=== PATIENT | male | born 1950 | race Hispanic/Latino ===

== ENCOUNTER → 2021-08-30 | Outpatient (CLI) | payer OTHER ==
[~2021-08-30] VITALS: Ht 165.1 cm; Wt 78.5 kg
[~2021-08-30] MED LIST: ASPI-556 PO; ATEN25TA PO; ATOR10TA69 PO; REGADENOSON 0.4 MG/5 ML PF SYG IVP ONE; REGADENOSON 0.4 MG/5 ML PF SYG IVP SCH
== END | disposition home or self-care (01) ==
LOC: SHCH 08-24 08:34
PROVIDERS: ATTEND Internal Medicine Cardiovascular Disease
DX: I45.10 Unspecified right bundle-branch block (principal); I10 Essential (primary) hypertension; I25.2 Old myocardial infarction; E78.5 Hyperlipidemia, unspecified; F17.210 Nicotine dependence, cigarettes, uncomplicated; Z95.1 Presence of aortocoronary bypass graft
CPT/HCPCS: 78452; 96374; 93017; J2785; A9500 ×2

== ENCOUNTER → 2021-12-06 | Outpatient (CLI) | payer OTHER ==
[~2021-12-06] MED LIST changes: -REGADENOSON 0.4 MG/5 ML PF SYG IVP ONE; -REGADENOSON 0.4 MG/5 ML PF SYG IVP SCH
[2021-12-06 12:38] LABS: CREATININE 0.6 mg/dL (0.5-1.5); POTASSIUM 3.5 mmol/L (3.5-5.1)
== END | disposition home or self-care (01) ==
LOC: LAB 11:49
PROVIDERS: ATTEND Internal Medicine Cardiovascular Disease
DX: I25.10 Atherosclerotic heart disease of native coronary artery without angina pectoris (principal); R06.02 Shortness of breath
CPT/HCPCS: 36415; 80048; 83880

== ENCOUNTER → 2022-04-12 | Outpatient (CLI) | payer OTHER | END | disposition home or self-care (01) | LOC: SHCH 09:13 | PROVIDERS: ATTEND Internal Medicine Cardiovascular Disease | DX: I87.2 Venous insufficiency (chronic) (peripheral) (principal); I70.202 Unspecified atherosclerosis of native arteries of extremities, left leg | CPT/HCPCS: 93925; 93970 ==

== ENCOUNTER 2022-05-26 11:06 | Emergency (ER) | payer OTHER ==
[~2022-05-26] VITALS: Ht 167.6 cm; Wt 80.3 kg
[2022-05-26 12:06] LABS: BASOPHILS % (AUTO) 0.8 % (0.0-5.0); EOSINOPHILS % (AUTO) 2.3 % (0.0-8.0); HEMATOCRIT 40.2 % (42-54); LYMPHOCYTES % (AUTO) 18.4 % (21.0-51.0); MEAN CORPUSCULAR HEMOGLOBIN 30.9 pg (27.0-33.0); MEAN CORPUSCULAR HGB CONC 33.1 g/dL (32.0-36.0); MEAN CORPUSCULAR VOLUME 93.5 fL (79-99); MONOCYTES % (AUTO) 6.9 % (3.0-13.0); NEUTROPHILS % (AUTO) 68.1 % (40.0-77.0); PLATELET COUNT (AUTO) 239 K/uL (130-400); RED CELL DISTRIBUTION WIDTH 13.2 % (11.0-15.5); WHITE BLOOD COUNT (AUTO) 9.2 K/uL (4.8-10.8)
[2022-05-26 12:57] VITALS: BP 122/85
[2022-05-26] MEDS ORDERED: DICL20GE TP (12:58)
[2022-05-26 13:12] LABS: CREATININE 0.8 mg/dL (0.5-1.5); POTASSIUM 3.2 mmol/L (3.5-5.1)
[2022-05-26 13:16] LABS: ALBUMIN 3.5 g/dL (3.5-5.0); TOTAL PROTEIN, SERUM 7.2 g/dL (6.0-8.3)
== END 2022-05-26 13:20 | disposition home or self-care (01) ==
LOC: EDH 11:06
DX: G56.02 Carpal tunnel syndrome, left upper limb (principal); M19.012 Primary osteoarthritis, left shoulder; I10 Essential (primary) hypertension; Z79.82 Long term (current) use of aspirin; Z79.899 Other long term (current) drug therapy
CPT/HCPCS: 36415; 71045; 80053; 84484; 85025; 93005

== ENCOUNTER 2024-07-10 12:40 | Emergency (ER) | payer OTHER, MEDICARE ==
[~2024-07-10] VITALS: Ht 165.1 cm; Wt 77.1 kg
[~2024-07-10 12:40] MED LIST changes: +DICL20GE TP
[2024-07-10 12:59] LABS: BASOPHILS # (AUTO) 0.05 K/uL (0.00-0.20); BASOPHILS % (AUTO) 0.6 % (0.0-5.0); EOSINOPHILS # (AUTO) 0.32 K/uL (0.00-0.70); EOSINOPHILS % (AUTO) 3.8 % (0.0-8.0); HEMATOCRIT 38.9 % (42-54); IMMATURE GRANULOCYTE ABSOLUTE 0.26 K/uL (0-1); MEAN CORPUSCULAR HEMOGLOBIN 28.6 pg (27.0-33.0); MEAN CORPUSCULAR HGB CONC 31.9 g/dL (32.0-36.0); MEAN CORPUSCULAR VOLUME 89.8 fL (79-99); MONOCYTES # (AUTO) 0.6 K/uL (0.1-1.0); MONOCYTES % (AUTO) 6.4 % (3.0-13.0); NEUTROPHILS # (AUTO) 6.3 K/uL (1.8-7.7); NEUTROPHILS % (AUTO) 74.2 % (40.0-77.0); PLATELET COUNT (AUTO) 248 K/uL (130-400); RED BLOOD CELL COUNT(AUTO) 4.33 MIL/uL (4.50-6.20); RED CELL DISTRIBUTION WIDTH 14.3 % (11.0-15.5); WHITE BLOOD COUNT (AUTO) 8.5 K/uL (4.8-10.8)
[2024-07-10 13:05] LABS: CREATININE 0.8 mg/dL (0.5-1.3); POTASSIUM 3.3 mmol/L (3.5-5.1)
--- NOTE | 2024-07-10 13:05 | ERN ---
General Chief Complaint: Abdominal Pain Stated Complaint: ABDOMINAL PAIN Time Seen by MD: 12:45 Source: patient History of Present Illness Initial Comments PATIENT IS A 73-YEAR-OLD MALE COMING IN TO BE EVALUATED FOR EPIGASTRIC PAIN. PATIENT STATES THAT THE PAIN BEGAN EARLIER TODAY. HE STATES THAT THE PAIN IS LOCALIZED TO THE EPIGASTRIC REGION RADIATES TO THE SIDES. ALONG WITH THIS HE HAS BEEN FEELING NAUSEOUSNESS WITH THE SAME TIMEFRAME. Allergies: Coded Allergies: No Known Drug Allergies (Unverified Allergy, Unknown, 07/17/15) Home Meds Reported Medications Gabapentin (Gabapentin) 100 Mg Capsule, 300 MG PO TID, CAP 07/10/24 Tamsulosin HCl (Flomax) 0.4 Mg Cap.er.24h, 0.4 MG PO DAILY, CAPSULE.DR 07/10/24 Atorvastatin Calcium (Atorvastatin Calcium) 10 Mg Tablet, 20 MG PO HS, TAB 10/26/16 Aspirin (Aspir 81) 81 Mg Tablet.dr, 81 MG PO DAILY, TAB 10/24/16 Atenolol (Atenolol) 25 Mg Tablet, 25 MG PO AM, TAB 10/03/16 Discontinued Scripts Diclofenac Sodium (Voltaren Arthritis Pain) 20 Gm Gel..gram., 20 GM TP TID PRN for PAIN for 10 Days, #30 TUBE Prov:CLAUS OLIVIA MD 05/26/22 Past Medical History Past Medical History: Heart Disease, Hypertension Past Surgical History: CABG, Other Surgical History Other: HIP REPLACEMENT Social History Social History: Negative ROS Dictation CONSTITUTIONAL: NO CHILLS, NO FEVER, NO WEAKNESS, NO DIAPHORESIS, NO MALAISE. HEAD/FACE: NO SIGNS OF TRAUMA. EENT: NO EYE PAIN, NO BLURRED VISION, NO TEARING, NO DOUBLE VISION, NO EAR PAIN, NO EAR DISCHARGE, NO NOSE PAIN, NO NASAL CONGESTION, NO THROAT PAIN, NO THROAT SWELLING, NO MOUTH PAIN. RESPIRATORY: NO COUGH, NO ORTHOPNEA, NO SOB, NO STRIDOR, NO WHEEZING. CARDIOVASCULAR: NO CHEST PAIN, NO EDEMA, NO PALPITATIONS, NO SYNCOPE. GASTROINTESTINAL/ABDOMINAL: NO ABDOMINAL PAIN, NO CONSTIPATION, NO DIARRHEA, NO NAUSEA, NO VOMITING. GENITOURINARY: NO ABNORMAL DISCHARGE, NO DYSURIA, NO FREQUENT URINATION, NO HEMATURIA. NO COMPLAINTS OF PAIN IN THE GENITALS. MUSCULOSKELETAL: NO BACK PAIN, NO GOUT, NO JOINT PAIN, NO JOINT SWELLING, NO MUSCLE PAIN, NO MUSCLE STIFFNESS, NO NECK PAIN. INTEGUMENTARY: NO CHANGE IN COLOR, NO CHANGE IN HAIR/NAILS, NO DRYNESS, NO LESION, NO LUMPS, NO RASH. NEUROLOGICAL/PSYCH: NO ANXIETY, NOT DEPRESSED, NO EMOTIONAL PROBLEM, NO HEADACHE, NO NUMBNESS, NO PRE-EXISTING DEFICIT, NO HISTORY OF SEIZURES, NO TREMORS, NO WEAKNESS. HEMATOLOGIC/LYMPHATIC: NOT ANEMIC, NO HISTORY OF BLOOD CLOTS, NO APPARENT BLEEDING, NO BRUISING, GLANDS NOT SWOLLEN. ALL SYSTEMS NEGATIVE, EXCEPT NOTED. Physical Exam Physical Exam Dictation VITAL SIGNS: REVIEWED. GENERAL APPEARANCE: ALERT, ORIENTED X3, NO ACUTE DISTRESS, OBESE. HEAD AND FACE: NON-TRAUMATIC. EYES: PERRL, PINK CONJUNCTIVAS, EYELID NO TRAUMA, ANTERIOR CHAMBER CLEAR. EARS: PINNAS INTACT AND NO SIGNS OF TRAUMA OR ERYTHEMA. EAR CANALS CLEAR AND NO DISCHARGE. TMS NO ERYTHEMA. NOSE: NO DISCHARGE, NO BLEEDING. OROPHARYNX: MOUTH NORMAL, TEETH NO CARIES, TONGUE PINK. PHARYNX CLEAR, NO ERYTHEMA. TONSILS NO EXUDATES, NO ABSCESSES NOTED. MUCOUS MEMBRANE MOIST. NECK: SUPPLE, NON-TENDER, NO THYROMEGALY, NO MASSES, NO JVD, NO BRUITS. BREAST: DEFERRED. CHEST: NO TENDERNESS, NO CREPITUS, NO PARADOXICAL MOVEMENT, NO RETRACTIONS. LUNGS: CLEAR, WELL-VENTILATED, SYMMETRIC, NO RALES, NO WHEEZING, NO RHONCHI, NO STRIDOR, GOOD BREATH SOUNDS BILATERALLY. HEART: REGULAR RATE, REGULAR RHYTHM, NO MURMUR, NO GALLOPS. VASCULAR: NO PERIPHERAL EDEMA. ABDOMEN: SOFT, POSITIVE BOWEL SOUNDS, NONDISTENDED, NO GUARDING, TENDER, NO REBOUND, NO MASSES NO HEPATOMEGALY, NO SPLENOMEGALY, NO SCHAFFER'S SIGN, NO HERNIAS. RECTAL: DEFERRED. GENITAL: DEFERRED. NEUROLOGICAL: NORMAL SPEECH, GROSS MOTOR FUNCTION INTACT, GROSS SENSORY FUNCTION INTACT. MUSCULOSKELETAL: NECK NONTENDER, FULL RANGE OF MOTION, BACK NONTENDER, FULL RANGE OF MOTION. EXTREMITIES: NONTENDER, FULL RANGE OF MOTION. SKIN: COLOR PINK, DRY, NO TURGOR, NO RASH, NO LACERATIONS, NO ABRASIONS, NO CONTUSIONS. LYMPHATICS: DEFERRED. Results Laboratory and Microbiology Lab and Micro Result Laboratory Tests Test 07/10/24 12:45 07/10/24 13:23 White Blood Count 8.5 K/uL (4.8-10.8) Red Blood Count 4.33 MIL/uL (4.50-6.20) L Hemoglobin 12.4 g/dL (14.0-18.0) L Hematocrit 38.9 % (42-54) L Mean Corpuscular Volume 89.8 fL (79-99) Mean Corpuscular Hemoglobin 28.6 pg (27.0-33.0) Mean Corpuscular Hemoglobin Concent 31.9 g/dL (32.0-36.0) L Red Cell Distribution Width 14.3 % (11.0-15.5) Platelet Count 248 K/uL (130-400) Mean Platelet Volume 9.1 fL (7.5-10.5) Immature Granulocyte % (Auto) 3.0 % (0-1) H Neutrophils (%) (Auto) 74.2 % (40.0-77.0) Lymphocytes (%) (Auto) 12.0 % (21.0-51.0) L Monocytes (%) (Auto) 6.4 % (3.0-13.0) Eosinophils (%) (Auto) 3.8 % (0.0-8.0) Basophils (%) (Auto) 0.6 % (0.0-5.0) Neutrophils # (Auto) 6.3 K/uL (1.8-7.7) Lymphocytes # (Auto) 1.0 K/uL (1.0-4.8) Monocytes # (Auto) 0.6 K/uL (0.1-1.0) Eosinophils # (Auto) 0.32 K/uL (0.00-0.70) Basophils # (Auto) 0.05 K/uL (0.00-0.20) Absolute Immature Granulocyte (auto 0.26 K/uL (0-1) Nucleated Red Blood Cells 0.0 % (0.0-0.19) Sodium Level 143 mmol/L (136-145) Potassium Level 3.3 mmol/L (3.5-5.1) L Chloride Level 109 mmol/L (101-111) Carbon Dioxide Level 29 mmol/L (21-32) Blood Urea Nitrogen 19 mg/dL (7-18) H Creatinine 0.8 mg/dL (0.5-1.3) Glomerular Filtration Rate Calc 93 mL/min (>90) Random Glucose 173 mg/dL (70-105) H Total Calcium 8.9 mg/dL (8.5-10.1) Total Bilirubin 0.3 mg/dL (0.2-1.0) Aspartate Amino Transf (AST/SGOT) 19 U/L (10-37) Alanine Aminotransferase (ALT/SGPT) 15 U/L (12-78) Alkaline Phosphatase 97 U/L (50-136) Total Creatine Kinase 28 U/L (21-232) # Troponin I High Sensitivity 6 ng/L (4-75) Total Protein 7.6 g/dL (6.0-8.3) Albumin 2.8 g/dL (3.5-5.0) L Lipase 54 U/L (16-77) Urine Color YELLOW (YELLOW) Urine Appearance TURBID (CLEAR) Urine pH 6.0 (5.0-8.0) Urine Specific Hallie 1.032 (1.001-1.031) Urine Protein 100 mg/dL (NEGATIVE) H Urine Glucose (UA) NEGATIVE mg/dL (NEGATIVE) Urine Ketones NEGATIVE mg/dL (NEGATIVE) Urine Occult Blood SMALL (NEGATIVE) H Urine Nitrate NEGATIVE (NEGATIVE) Urine Bilirubin NEGATIVE mg/dL (NEGATIVE) Urine Urobilinogen 2.0 mg/dL (0.2-1.0) H Urine Leukocyte Esterase 500 Genna/uL (NEGATIVE) H Urine RBC 26-50 /HPF (0-1) H Urine WBC TNTC /HPF (0-1) H Urine WBC Clumps (Auto) MANY /HPF (0-1) Urine Squamous Epithelial Cells FEW /HPF (0-2) Urine Bacteria MANY /HPF (None Seen) Labs Reviewed?: Yes EKG/XRAY/US/CT/MRI EKG Comment 07/10/2024 TIME 12:56 P.M. VENTRICULAR RATE 96 SINUS RHYTHM OR [address] WAVE ELEVATION OR DEPRESSION CT Scan Comment [place] [id number] [address] IMAGING REPORT Signed PATIENT: MAURICIO SMITH MR#: [id number] : 1950 SEX: M AGE: 73 LOCATION: [facility] ORDER [id number] STATUS: REG ER REPORT#: [id number] SERVICE [id number] REASON: ABD PAIN/ EPIGASTRIC ORDERING PHYSICIAN: CLAUS OLIVIA MD PROCEDURE: ABD PEL W - CT ABDOMEN/PELVIS W/CONTRAST Exam Type: CT ABDOMEN/PELVIS W/CONTRAST Clinical Information: ABD PAIN/ EPIGASTRIC Comparison: None Contrast: 100 cc's Isovue 370 IV, no complications or adverse reactions CT Dose Index (CTDI): 31.60 mGy Dose Length Product (DLP): 1740.80 total mGy-cm Findings: No evidence of nephro or ureterolithiasis is found. No hydronephrosis or ureteral dilatation is seen. 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 Status post median sternotomy. Clear right lung base. Small to moderate left pleural effusion with left basal atelectasis. Fusiform infrarenal abdominal aortic aneurysm, maximum diameters 10.4 cm length by 5.7 cm transverse by 6.1 cm anteroposterior. No rupture. No occlusion. No dissection. Please note that there is significant aneurysmal dilatation of the right common iliac artery as well, maximum diameter 3.3 x 3.7 cm. The stomach is unremarkable. It shows no wall thickening. No gross ulceration is seen. It is not overly distended. There are no surrounding inflammatory changes. No wall lesions are identified to suggest cancer. The spleen is unremarkable. It is not enlarged. The pancreas shows normal anatomy. It is not fatty replaced. It shows no lesions. The pancreatic duct is not dilated. The gallbladder is surgically absent. The adrenal glands are unremarkable. There is no enlargement. No lesions are noted. The liver is unremarkable. It shows no focal masses. The appendix is unremarkable. It shows no evidence of inflammation. No appendicolith is seen. The small bowel is unremarkable. There is no evidence of dilatation to suggest obstruction. No evidence of adynamic ileus is seen. There is no small bowel wall thickening to suggest enteritis. Abundant fecal matter is noted throughout the colon consistent with constipation. The urinary bladder is unremarkable. There is no wall thickening to suggest tumor or inflammation. There are no intraluminal calculi. There are no diverticula. There is no evidence of chronic bladder outlet obstruction. There is no evidence of urinary bladder distention to suggest urinary retention. The other pelvic structures are unremarkable. The bony and vascular structures are unremarkable for the patient's age. 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 Status post median sternotomy. Clear right lung base. Small to moderate left pleural effusion with left basal atelectasis. Fusiform infrarenal abdominal aortic aneurysm, maximum diameters 10.4 cm length by 5.7 cm transverse by 6.1 cm anteroposterior. No rupture. No occlusion. No dissection. Please note that there is significant aneurysmal dilatation of the right common iliac artery as well, maximum diameter 3.3 x 3.7 cm. This study was performed using dose reduction techniques to include automated exposure control and/or adjustment of the mA and/or kV according to patient size. DICTATED BY: ANNA PULIDO MD DATE: 07/10/24 1521 ELECTRONICALLY SIGNED BY: ANNA PULIDO MD DATE: 07/10/24 1531 [facility] MDM: Differential diagnosis: Infrarenal AAA, abdominal pain, urinary tract infection, Rationale: Tests considered and ordered secondary to shared decision making include: labs, ECG and radiology Previous outside records reviewed: Old ER visits. Risk of complication and/or morbidity or mortality of patient management: None Medications-Per medication reconciliation Need for hospitalization: Patient does meet criteria for hospitalization. Need for emergency major/minor surgery: No There are no social concerns with this patient. Prescription drug management Prescriptions will include symptomatic care Patient's prior external medical records from other ER visits were reviewed by me as indicated. Prior testing and results from previous visits were reviewed. Prior tests were taken into account with medical decision making and resource utilization, independent historian/historians were used to obtain complete medical history. I have discussed the patient with the vascular surgeon at [facility] and he has reviewed the CT scan with me and agrees to accept the patient for emergent repair of his AAA. I independently interpreted the test that were performed, results were reviewed by me and considered findings on radiology if ordered. Medical management and examination interpretation discussions were had by me with other qualified healthcare professionals as indicated for the patient's care. Patient is a 73-year-old gentleman coming in to be evaluated for abdominal pain. Patient does have a smoking history states he stopped smoking 6 years ago. He also states that four days ago he started having abdominal pain intensified to the point of coming in for further evaluation. He rates the pain at 10/10 localized in the right lower quadrant area. CT disclose the 10.4 cm length and 6 cm diameter infrarenal AAA. ED Course Orders Procedure Category Date Status Time Cbc With Differential LAB 07/10/24 Complete 12:50 Comprehensive LAB 07/10/24 Complete Metabolic Panel 12:50 Troponin I High LAB 07/10/24 Complete Sensitivity 12:50 Urinalysis Profile LAB 07/10/24 Complete 12:50 12 Lead Ekg Tracing- EKG 07/10/24 Complete Technical 12:50 Lactated Ringers PHA 07/10/24 Complete 1000ml (Lactated 13:00 Creatine Kinase, Total LAB 07/10/24 Complete 12:50 Chest 1vw RAD 07/10/24 Resulted 12:50 Lipase LAB 07/10/24 Complete 12:50 Culture Urine CHELI 07/10/24 In Process 13:53 Ct Abdomen/Pelvis CT 07/10/24 Resulted W/Contrast 14:08 Ceftriaxone 1g Vial PHA 07/10/24 Complete (Rocephine 1g Inj) 14:30 Potassium Bicarb/Cit PHA 07/10/24 Complete Ac 25meq (K-Lyte Ta 14:30 Iohexol (Omnipaque) PHA 07/10/24 Complete 16:05 Morphine 2mg Syg PHA 07/10/24 Complete (Morphine 2mg Syg) 18:30 Ondansetron 4mg Inj PHA 07/10/24 Complete (Zofran 4mg Inj) 18:30 Hydralazine 20mg Inj PHA 07/10/24 Complete (Apresoline 20mg In 20:00 Current Medications Medications (Trade) Dose Ordered Sig/Tania Route PRN Reason Start Time Stop Time Status Last Admin Dose Admin Ceftriaxone Sodium (ROCEphine 1G INJ) 1 gm ONCE ONCE IVPB 07/10/24 14:30 07/10/24 14:31 DC 07/10/24 14:38 Hydralazine HCl (APRESOLine 20MG INJ) 20 mg ONCE ONCE IV 07/10/24 20:00 07/10/24 20:01 DC 07/10/24 20:11 Iohexol (Omnipaque) 35,000 mg STK-MED ONCE IV 07/10/24 16:05 07/10/24 16:05 DC Lactated Ringer's 1,000 ml @ 0 mls/hr ONCE ONCE IV 07/10/24 13:00 07/10/24 13:01 DC 07/10/24 13:44 Morphine Sulfate (morPHINE 2MG SYG) 2 mg ONCE ONCE IVP 07/10/24 18:30 07/10/24 18:32 DC 07/10/24 18:35 Ondansetron HCl (zoFRAN 4MG INJ) 4 mg ONCE ONCE IVP 07/10/24 18:30 07/10/24 18:32 DC 07/10/24 18:35 Potassium Bicarbonate (K-Lyte Tablet Eff 25 Meq Tablet.eff) 50 meq ONCE ONCE PO 07/10/24 14:30 07/10/24 14:31 DC 07/10/24 14:38 Vital Signs Date Time Temp Pulse Resp B/P (MAP) Pulse Ox O2 Delivery O2 Flow Rate FiO2 07/10/24 20:36 92 18 98/53 95 Room Air* 0 07/10/24 20:11 84 20 137/79 94 Room Air* 0 07/10/24 19:41 98.4 80 20 142/76 94 Room Air* 0 07/10/24 18:48 98.1 76 16 145/85 95 Room Air* 0 07/10/24 13:23 98.4 91 18 102/70 95 Room Air* 0 07/10/24 12:44 98.1 99 20 115/59 92 Room Air DX & DISP Disposition: Transfer Departure Impression: Primary Impression: AAA (abdominal aortic aneurysm) Additional Impressions: Infrarenal abdominal aortic aneurysm (AAA) without rupture, UTI (urinary tract infection) Condition: Stable Referrals: NONE (PCP) CLAUS OLIVIA MD July 10, 2024 13:04 AGNES LOBO MD July 10, 2024 21:14
[2024-07-10 13:12] LABS: ALBUMIN 2.8 g/dL (3.5-5.0); BILIRUBIN,TOTAL 0.3 mg/dL (0.2-1.0); TOTAL PROTEIN, SERUM 7.6 g/dL (6.0-8.3)
--- NOTE | 2024-07-10 13:31 | NUR ---
PER PT, COMING IN WITH 16F MOSLEY STATES WAS CHANGED ON 07/08/24 BY HOME NURSE, MOSLEY APPEARS YELLOW COULDY WITH SEDIMENT GROWTH IN TUBING.
[2024-07-10] MEDS: LACTATED RINGERS 1000ML 1,000 ML IV ONE (13:44)
--- NOTE | 2024-07-10 13:44 | NUR ---
CORRECTION TO LAST NOTE, 18F MOSLEY CATHETER INPLACE ON ARRIVAL.
[2024-07-10 13:51] LABS: APPEARANCE,URINE TURBID (CLEAR); BILIRUBIN,URINE NEGATIVE (NEGATIVE); COLOR,URINE YELLOW (YELLOW); GLUCOSE, URINE (UA) NEGATIVE (NEGATIVE); KETONES,URINE NEGATIVE (NEGATIVE); LEUKOCYTE ESTERASE ,URINE 500 Leu/uL (NEGATIVE); NITRATE,URINE NEGATIVE (NEGATIVE); OCCULT BLOOD,URINE SMALL (NEGATIVE); PROTEIN,URINE 100 mg/dL (NEGATIVE)
[2024-07-10 13:52] LABS: ADD UA MICROSCOPIC YES
--- NOTE | 2024-07-10 14:08 | HMCIMG ---
Exam Type: CHEST 1VW Clinical Information: CP Comparison: None Findings: Status post median sternotomy. Small left pleural effusion. Tortuosity of the aorta. Ill-defined infiltrates of the left lower lobe are seen consistent with pneumonia. . The heart is large in size. The bony and soft tissue structures show no worrisome pathology. IMPRESSION: Findings consistent with pneumonia. Follow-up is advised.
[2024-07-10 14:15] LABS: BACTERIA,URINE MANY /HPF (None Seen); RBC,URINE 26-50 /HPF (0-1); SQUAMOUS EPITHELIAL CELL,UR FEW /HPF (0-2); WBC CLUMP MANY /HPF (0-1); WBC,URINE TNTC /HPF (0-1)
[2024-07-10] MEDS: PoTASSium BIcarbonate/CIT AC 25 MEQ TABLET.EFF PO ONE (14:38)
[2024-07-10] MEDS: cefTRIAXone 1G VIAL IVPB ONE (14:38)
--- NOTE | 2024-07-10 15:31 | HMCIMG ---
Exam Type: CT ABDOMEN/PELVIS W/CONTRAST Clinical Information: ABD PAIN/ EPIGASTRIC Comparison: None Contrast: 100 cc's Isovue 370 IV, no complications or adverse reactions CT Dose Index (CTDI): 31.60 mGy Dose Length Product (DLP): 1740.80 total mGy-cm Findings: No evidence of nephro or ureterolithiasis is found. No hydronephrosis or ureteral dilatation is seen. 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 Status post median sternotomy. Clear right lung base. Small to moderate left pleural effusion with left basal atelectasis. Fusiform infrarenal abdominal aortic aneurysm, maximum diameters 10.4 cm length by 5.7 cm transverse by 6.1 cm anteroposterior. No rupture. No occlusion. No dissection. Please note that there is significant aneurysmal dilatation of the right common iliac artery as well, maximum diameter 3.3 x 3.7 cm. The stomach is unremarkable. It shows no wall thickening. No gross ulceration is seen. It is not overly distended. There are no surrounding inflammatory changes. No wall lesions are identified to suggest cancer. The spleen is unremarkable. It is not enlarged. The pancreas shows normal anatomy. It is not fatty replaced. It shows no lesions. The pancreatic duct is not dilated. The gallbladder is surgically absent. The adrenal glands are unremarkable. There is no enlargement. No lesions are noted. The liver is unremarkable. It shows no focal masses. The appendix is unremarkable. It shows no evidence of inflammation. No appendicolith is seen. The small bowel is unremarkable. There is no evidence of dilatation to suggest obstruction. No evidence of adynamic ileus is seen. There is no small bowel wall thickening to suggest enteritis. Abundant fecal matter is noted throughout the colon consistent with constipation. The urinary bladder is unremarkable. There is no wall thickening to suggest tumor or inflammation. There are no intraluminal calculi. There are no diverticula. There is no evidence of chronic bladder outlet obstruction. There is no evidence of urinary bladder distention to suggest urinary retention. The other pelvic structures are unremarkable. The bony and vascular structures are unremarkable for the patient's age. 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 Status post median sternotomy. Clear right lung base. Small to moderate left pleural effusion with left basal atelectasis. Fusiform infrarenal abdominal aortic aneurysm, maximum diameters 10.4 cm length by 5.7 cm transverse by 6.1 cm anteroposterior. No rupture. No occlusion. No dissection. Please note that there is significant aneurysmal dilatation of the right common iliac artery as well, maximum diameter 3.3 x 3.7 cm. This study was performed using dose reduction techniques to include automated exposure control and/or adjustment of the mA and/or kV according to patient size.
[2024-07-10] MEDS ORDERED: IOHEXOL 350 MG/ML 100ML INFUS..BTL IV ONE (16:05)
--- NOTE | 2024-07-10 17:00 | NUR ---
TRANSFER TRANSFER REQUEST FOR INTRARENAL ANEURYSM PER DR OLIVIA . DR WALLS UNAVAILABLE FOR THE NEXT 4 DAYS . KELVIN BAUM
--- NOTE | 2024-07-10 17:48 | NUR ---
PENDING SON TO BRING HOME MEDICATIONS FROM HOUSE.
--- NOTE | 2024-07-10 18:00 | NUR ---
TRANSFER, CALL PLACE TO [facility] SPOKE WITH KATHERINE INTAKE NURSE AND WILL CALL BACK, KELVIN BAUM
[2024-07-10] MEDS: morPHINE 2 MG SYG IVP ONE (18:35)
[2024-07-10] MEDS: ondanSETRON 4MG INJ IVP ONE (18:35)
--- NOTE | 2024-07-10 18:40 | NUR ---
TRANSFER CALL BACK FROM INTAKE NURSE KATHERINE WITH A DENIAL FOR SAME PROVIDER P[facility] [place] [facility] [place] . KELVIN BAUM
[2024-07-10] MEDS ORDERED: GABA-529 PO (18:48)
[2024-07-10] MEDS ORDERED: TAMS-55 PO (18:48)
--- NOTE | 2024-07-10 18:55 | EKG ---
[facility] Test Date: 2024-07-10 Test Time: 12:56:01 Pat Name: MAURICIO SMITH Department: [facility] Room: Gender: M Sports Journalist: [id number] : 1950 Requested By: CLAUS OLIVIA Order Number: [id number] Reading MD: Shon Schroeder Measurements Intervals Leslie Rate: 96 P: -8 TN: 135 QRS: -59 QRSD: 139 T: 5 QT: 388 QTc: 490 Interpretive Statements Sinus rhythm RBBB and LAFB Compared to ECG 05/26/2022 11:20:13 No significant changes Electronically Signed On 07-10-2024 21:36:36 CDT by Shon Schroeder Please click the below link to view image of tracing.
[2024-07-10] MEDS: hydrALAZine 20MG/ML VIAL IV ONE (20:11)
--- NOTE | 2024-07-10 21:31 | NUR ---
REPORT GIVEN TO CHRISTINA MESA RN, DHR TO R TRANSFER
[2024-07-10 21:45] VITALS: BP 109/55; PULSE 93; RESP 20; TEMP 98.5; O2SAT 95
== END 2024-07-10 21:53 | disposition short-term general hospital (02) ==
LOC: EDH 12:40
DX: I71.43 Infrarenal abdominal aortic aneurysm, without rupture (principal); N39.0 Urinary tract infection, site not specified; I10 Essential (primary) hypertension; Z79.82 Long term (current) use of aspirin; Z79.899 Other long term (current) drug therapy; Z95.1 Presence of aortocoronary bypass graft; Z98.890 Other specified postprocedural states
CPT/HCPCS: 74177; 96375; 99285; 96365; 71045; 96361; 82550; 84484; 80053; 83690; 85025; 87086 ×2; 87186; 81001; 36415; 93005; J2270; J0360; J0696; J2405; Q9967